=== PATIENT | female | born 1975 | race Caucasian/White ===

== ENCOUNTER 2016-09-27 08:27 | Emergency (ER) | payer OTHER ==
[~2016-09-27] VITALS: Ht 167.6 cm; Wt 52.3 kg
[2016-09-27 08:31] VITALS: BP 123/75; PULSE 55; RESP 14; O2SAT 100
--- NOTE | 2016-09-27 08:39 | ED.REPORT ---
HPI-Abd Pain F 40 and Over Date of Service Sep 27, 2016 ED Provider: Alexis Sesay MD Patient is a healthy 40 year old female who presents to the ED complaining of sharp, constant abdominal pain that awoke her a few hours ago. Her pain radiates to her back. She denies nausea, vomiting, fever, chills, dysuria, urinary urgency, or any other symptoms. She has not eaten yet this morning. Nursing Notes Stated Complaint: ABDOMINAL PAIN Chief Complaint: Female Abdominal Pain Nursing Notes Reviewed: Yes (Night Node Software not reconciled) Allergies: Coded Allergies: Sulfa (Sulfonamide Antibiotics) (Verified Allergy, Unknown, rash, 09/27/16) cephalexin (Verified Allergy, Unknown, vomiting, 09/27/16) Scheduled Ranitidine (Ranitidine) 150 Mg Capsule 150 MG PO BID Scheduled PRN Hydrocodone-Acetaminophen 5-325 mg (Hydrocodone-Acetaminophen 5-325 mg) 1 Each Tablet 1-2 TABLET PO Q4H PRN PRN For Pain Ondansetron ODT (Ondansetron ODT) 8 Mg Tab.rapdis 8 MG PO Q4H PRN PRN For Nausea General Time Seen by MD: 08:37 Chief Complaint Abdominal pain Hx Obtained From: Patient Arrived By: Walk-in Sudden in Onset?: Yes Onset Occurred: 1 - 4 hours ago Symptom Duration: Since onset Quality: Sharp Severity: Current: Pain level 6 out of 10 Severity: Maximum: Pain level 6 out of 10 Risk Factors )( AAA Risk Stratification No Hypertension, No Smoking Risk factors reviewed Past Medical History Past Medical History Healthy Past Surgical History Denies Smoking History Unknown if Ever Smoker Social History Alcohol Use: Denies alcohol use Drug Use: Denies drug use Ambulatory Status Independent Review of Systems Constitutional: Denies: Chills GI: Reports: Abdominal pain, Denies: Nausea, Vomiting Female: Denies: Dysuria, Urinary urgency Musculoskeletal: Reports: Back pain Complete sys rev & neg: except as marked. Physical Exam Vital Signs Vital Signs (First) Date Time Temp Pulse Resp B/P Pulse Ox O2 Delivery O2 Flow Rate FiO2 09/27/16 08:31 36.2 55 14 123/75 100 Room Air Initial VS: Reviewed, Vital signs normal Head / Eyes: Atraumatic, Normocephalic Neck: Full range of motion Skin: Warm, Dry Neurologic: Alert, Oriented, Nonfocal Psychiatric: Mood/affect normal, Behavior normal, Normal thought content General/Constitutional: Awake, Alert, Well developed Appears uncomfortable Respiratory / Chest: Atraumatic, Breath sounds NL, Breath sounds = bilat, No respiratory distress Cardiovascular: Heart rate NL, Regular rhythm, Heart sounds NL Abdomen: McBurney's non-tender, No guarding Tenderness/Guarding/Rebound: Positive: Tender RUQ..., Tender epigastric, Negative: McBurney's point tender Back: Inspection NL Interpretation & Diagnostics US ABDOMEN: IMPRESSION: Contracted gallbladder therefore technically suboptimal evaluation. Questionable gallbladder wall thickening may be due to decompressed state. No other sonographic criteria for acute cholecystitis therefore please correlate clinically and with LFTs. Mild right renal cortical thinning. Dictated by: Jamshid Bragg M.D. on 09/27/2016 at 10:40 Approved by: Jamshid Bragg M.D. on 09/27/2016 at 10:40 Lab Results Interpretation Result Diagram: 09/27/16 0905 09/27/16 0905 Test 09/27/16 09:05 09/27/16 09:15 White Blood Count 5.8th/mm3 (3.8-10.1) Red Blood Count 4.06mil/mm3 (3.90-5.20) Hemoglobin 11.6g/dL (12.0-15.6) Hematocrit 36.4% (35.0-46.0) Mean Corpuscular Volume 89.7fL (81-100) Mean Corpuscular Hemoglobin 28.6pg (27.0-35.0) Mean Corpuscular Hemoglobin Concent 31.9% (32.0-37.0) Red Cell Distribution Width 12.6% (12.3-15.4) Platelet Count 243bil/L (150-400) Neutrophils (%) (Auto) 85.6% (40-74) Lymphocytes (%) (Auto) 8.3% (14-46) Monocytes (%) (Auto) 4.9% (4-12) Eosinophils (%) (Auto) 0.5% (0-5) Basophils (%) (Auto) 0.5% (0-3) Sodium Level 141mEq/L (134-144) Potassium Level 3.8mEq/L (3.5-5.2) Chloride Level 104mEq/L (97-108) Carbon Dioxide Level 26mmol/L (18-29) Blood Urea Nitrogen 15mg/dL (6-24) Creatinine 0.63mg/dL (0.57-1.00) Estimat Glomerular Filtration Rate 150mL/min (>59) Glucose Level 108mg/dL (60-99) Calcium Level 9.3mg/dL (8.5-10.1) Magnesium Level 2.0mg/dL (1.6-2.6) Total Bilirubin 0.5mg/dL (0.0-1.2) Aspartate Amino Transf (AST/SGOT) 16U/L (0-50) Alanine Aminotransferase (ALT/SGPT) 11U/L (0-32) Alkaline Phosphatase 42U/L (25-150) Total Protein 7.0g/dL (6.4-8.4) Albumin 4.4g/dL (3.4-5.0) Lipase 21U/L (13-60) Hold Estrella Top Tube Received (Received) Lab Results Interpretation: CBC normal CMP normal Lipase normal Re-Eval/Medical Decision Med Decision/Clinical Course This is a 40-year-old female presents with several hours of epigastric pain. Does radiate slightly into the back. It is no prior history of gallbladder or pancreatic pathology. She does not drink alcohol, she has no history of dyspeptic symptoms in the past, no history of GI bleeding. Essentially appears mildly uncomfortable, and has mild tender epigastric right upper quadrant-but no guarding or rebound. An IV was placed. Blood work was normal. She received as a pain medicine much improved. Ultrasound was obtained and the gallbladder slightly contracted, but no clear pathology was identified. Patient feels much improved on reexamination. Explained that a definitive diagnosis is not been established, empiric treatment of ranitidine and avoidance of NSAIDs is recommended, routine precautions are reviewed. Patient' s also discharged with a few hydrocodone and ondansetron for symptomatically management. Source of Hx: Old records Re-Evaluation/Progress : Time of Eval: 12:31 )( Re-Eval Abdomen: No guarding Patient Status: Condition improved Re-Evaluation/Progress Note: Discussed plan for discharge. Patient understands and agrees with plan. All questions addressed at this time. Differential Diagnosis: Positive: Acute abdominal pain, Negative: Abdominal aortic aneurysm, Acute coronary syndrome, Appendicitis, Bladder outlet obstruct, C. diff colitis, Cellulitis, Cervicitis, Cholangitis, Cholecystitis, Cholelithiasis, Diverticular disease, Ectopic preg ruptured, Ectopic , Endometriosis, Esophageal rupture, Gun shot wound abdomen, Peritonitis, Porphyria, Stab wound abdomen, Volvulus Counseled Regarding: Diagnosis, Lab results, Need for follow-up, When/why to return to ED Discharge & Departure Primary Impression: Epigastric pain Disposition: Home Discharge Condition All VS Reviewed: Yes Condition: Stable Additional Instructions: 1. Your blood tests were normal. 2. No findings of gallstones or gallbladder disease were evident on ultrasound, although the gallbladder was slightly contracted. 3. In most cases of this type of pain, symptoms resolve with time in a few days. 4. Drink plenty of fluids 5. Take hydrocodone/APAP 5/325 1-2 tabs up to every 6 hours as needed for pain. NOTE: This medication contains a narcotic and causes drowsiness. No driving for at least 4 hours after taking. 6. Take ondansetron 8mg - let dissolve under tongue - up to every 4 hours as needed for pain. 7. I recommend a trial of ranitidine 150mg twice a day for the next several weeks to treat mild gastritis (stomach inflammation). Avoid ibuprofen/aleve/ motrin during this time. 8. Return if new, worsening, or uncontrolled symptoms. Scribe Attestation Portions of this note were transcribed by Miguel Angel Dunne. I, Dr. Sesay personally performed the history, physical exam and medical decision-making; I reviewed and confirmed the accuracy of the information in the transcribed note. Signed by: Miguel Angel Dunne 09/27/16, 1233 Alexis Sesay MD Sep 27, 2016 08:39 MIGUEL ANGEL DUNNE Sep 27, 2016 08:47
[2016-09-27] MEDS ORDERED: 0.9% Sodium Chloride 1,000 ML IV ONE (08:43)
[2016-09-27] MEDS ORDERED: Ondansetron 2 mg/mL 2 mL Inj IVPUSH ONE (08:45)
[2016-09-27 09:17] LABS: BASOPHILS % (AUTO) 0.5 % (0-3); EOSINOPHILS % (AUTO) 0.5 % (0-5); MONOCYTES % (AUTO) 4.9 % (4-12); Mean Corpuscular Hemoglobin 28.6 pg (27.0-35.0); Mean Corpuscular Volume 89.7 fL (81-100); NEUTROPHILS % (AUTO) 85.6 % (40-74); Platelet Count 243 bil/L (150-400)
[2016-09-27] MEDS: HYDROmorphone 0.5 mg/0.5 mL iSecure Syringe IVPUSH PRN ×2 (09:18→10:51)
--- NOTE | 2016-09-27 10:43 | DRSVH ---
PROCEDURE: US ABDOMEN INDICATIONS: RUQ/Epigastric pain TECHNIQUE: Real-time scanning was performed of the abdominal and retroperitoneal organs, with image documentatio n. COMPARISON: None. FINDINGS: Liver length: 14.03 cm Gallbladder Wall Thickness: 3.70 mm CHD: 0.60 mm CBD: 2.90 mm Spleen length: 9.7 Right kidney length: 11.62 cm Left kidney length: 11.61 cm Aorta(Proximal): 2.54 cm Aorta(Mid): 2.35 cm Aorta(Distal): 1.67 cm RCIA: 1.26 cm LCIA: 1.28 cm Liver: Liver is normal in size and homogeneous in echotexture. Gallbladder: Contracted. No sonographic Boston sign or pericholecystic fluid. The gallbladder wall me asures 3-4 mm Biliary ducts: Intrahepatic bile ducts are non-dilated. Extrahepatic bile duct caliber is normal. Normal is 6-7 mm or less in diameter, or 10 mm or less post-cholecystectomy. Pancreas: Visualized portions of the pancreas are sonographically normal. Spleen: Spleen is normal in size and homogeneous in echotexture. Kidneys: Right renal cortex measures 0.8 cm parallel to cortex measures 1.4 cm. No hydronephrosis or nephrolithiasis. No solid masses. Aorta: Visualized aorta is normal in caliber at less than 3 cm. Iliacs: Proximal common iliac arteries are normal in caliber at less than 2.5 cm. IVC: Intrahepatic inferior vena cava is patent. Miscellaneous: No free abdominal fluid. IMPRESSION: Contracted gallbladder therefore technically suboptimal evaluation. Questionable gallblad maribel wall thickening may be due to decompressed state. No other sonographic criteria for acute cholecy stitis therefore please correlate clinically and with LFTs. Mild right renal cortical thinning. Dictated by: Jamshid Bragg M.D. on 09/27/2016 at 10:40 Approved by: Jamshid Bragg M.D. on 09/27/2016 at 10:40
[2016-09-27] MEDS ORDERED: Alum-Mag Hydrox-Simeth 30 mL Suspension PO ONE (11:35)
[2016-09-27] MEDS ORDERED: RANI150C4 PO (12:29)
[2016-09-27] MEDS ORDERED: HYDR-4003 PO (12:29)
[2016-09-27] MEDS ORDERED: ONDA8TAB10 PO (12:29)
[2016-09-27 13:04] VITALS: BP 99/63; PULSE 60; O2SAT 100
== END 2016-09-27 13:03 | disposition home or self-care (01) ==
LOC: SED 08:27
DX: R10.13 Epigastric pain (principal); Z88.2 Allergy status to sulfonamides; Z88.1 Allergy status to other antibiotic agents
CPT/HCPCS: 76700; 80053; 83690; 83735; 85025; 96361; 96374; 96375; 96376; 99285; J1170; J2405; J7030